=== PATIENT | female | born 1970 | race Two or more races ===

== ENCOUNTER 2024-05-27 18:20 | Emergency (ER) | payer OTHER ==
[~2024-05-27] VITALS: Ht 154.9 cm; Wt 68.2 kg
[2024-05-27 18:33] VITALS: BP 151/94; PULSE 64; RESP 14; TEMP 98
[2024-05-27 19:42] LABS: BASOPHILS % (AUTO) 0.2 % (0.0-2.0); EOSINOPHILS % (AUTO) 2.7 % (1.0-6.0); HEMOGLOBIN 13.6 g/dL (12.0-16.0); LYMPHOCYTES # (AUTO) 2.1 K/uL (1.0-4.8); LYMPHOCYTES % (AUTO) 32.2 % (22.0-44.0); MEAN CORPUSCULAR HEMOGLOBIN 28.7 pg (26.0-34.0); MEAN CORPUSCULAR HGB CONC 33.2 G/dL (31.0-37.0); MEAN CORPUSCULAR VOLUME 87 fL (80-100); MONOCYTES # (AUTO) 0.6 K/uL (0.1-1.0); MONOCYTES % (AUTO) 9.8 % (2.0-9.0); NEUTROPHILS # (AUTO) 3.5 K/uL (1.8-7.7); NEUTROPHILS % (AUTO) 55.1 % (40.0-70.0); PLATELET COUNT (AUTO) 204 K/uL (150-450); RED BLOOD CELL COUNT(AUTO) 4.73 MIL/uL (4.00-5.20); RED CELL DISTRIBUTION WIDTH 13.3 % (11.5-14.5); WHITE BLOOD COUNT (AUTO) 6.4 K/uL (4.5-11.0)
[2024-05-27 19:48] LABS: ANION GAP 8 mmol/L (8-16); CALCIUM, TOTAL 9.5 mg/dL (8.8-10.5); CARBON DIOXIDE 33 mmol/L (22-29); CHLORIDE 97 mmol/L (98-107); CREATININE 0.64 mg/dL (0.60-1.30); GLOMERULAR FILTR. RATE CALC > 60 mL/min (>60); GLUCOSE,RANDOM 87 mg/dL (70-110); POTASSIUM 3.2 mmol/L (3.5-5.1); SODIUM SERUM 138 mmol/L (136-145); UREA NITROGEN, BLOOD 11 mg/dL (7-18)
[2024-05-27 19:49] LABS: AMYLASE 48 U/L (25-115); LIPASE 41 U/L (16-77)
[2024-05-27 20:04] LABS: APPEARANCE,URINE CLEAR (CLEAR); BILIRUBIN,URINE NEGATIVE (NEGATIVE); COLOR,URINE COLORLESS (YELLOW); GLUCOSE, URINE (UA) NEGATIVE (NEGATIVE); KETONES,URINE NEGATIVE (NEGATIVE); LEUKOCYTE ESTERASE ,URINE NEGATIVE (NEGATIVE); NITRATE,URINE NEGATIVE (NEGATIVE); OCCULT BLOOD,URINE NEGATIVE (NEGATIVE); PROTEIN,URINE NEGATIVE (NEGATIVE); SPECIFIC GRAVITIY, URINE 1.007 (1.003-1.030); UROBILINOGEN,URINE <=1.0 mg/dL (<=1.0)
[2024-05-27] MEDS: POTASSIUM CHLORIDE 20 MEQ ER TABLET PO ONE (21:47)
== END 2024-05-27 22:21 | disposition home or self-care (01) ==
LOC: EMS 18:21
DX: R19.7 Diarrhea, unspecified (principal); E11.9 Type 2 diabetes mellitus without complications; I10 Essential (primary) hypertension
CPT/HCPCS: 80048; 81003; 82150; 83690; 85025; 99283

== ENCOUNTER 2025-02-19 07:41 | Emergency (ER) | payer OTHER ==
[~2025-02-19] VITALS: Ht 154.9 cm; Wt 75.5 kg
[2025-02-19 07:44] VITALS: TEMP 98.2
[2025-02-19] MEDS ORDERED: HYDR25TA PO (07:47)
[2025-02-19] MEDS ORDERED: SEMA1PEN3 SQ (07:47)
[2025-02-19] MEDS ORDERED: CYCL5TAB3 PO (07:50)
[2025-02-19] MEDS: METHOCARBAMOL 500 MG TABLET PO ONE (09:17)
[2025-02-19] MEDS: IBUPROFEN 600 MG TABLET PO ONE (09:17)
[2025-02-19] MEDS: LIDOCAINE 5% TRANSDERMAL PATCH TD ONE (09:18)
[2025-02-19] MEDS ORDERED: IBUP-1492 PO (09:45)
[2025-02-19] MEDS ORDERED: LIDO700A15 TP (09:45)
[2025-02-19] MEDS ORDERED: METH-659 PO (09:45)
[2025-02-19 10:00] VITALS: BP 135/71; PULSE 78; RESP 18; O2SAT 99
== END 2025-02-19 10:07 | disposition home or self-care (01) ==
LOC: EMS 07:48
DX: M75.102 Unspecified rotator cuff tear or rupture of left shoulder, not specified as traumatic (principal); M25.531 Pain in right wrist; M54.2 Cervicalgia; R20.2 Paresthesia of skin; E11.9 Type 2 diabetes mellitus without complications; I10 Essential (primary) hypertension; Z87.19 Personal history of other diseases of the digestive system; Z79.899 Other long term (current) drug therapy
CPT/HCPCS: 82962; 99284; Z7502; Z7610